=== PATIENT | female | born 1985 ===

== ENCOUNTER 2018-07-07 23:05 | Inpatient (IN) ==
--- NOTE | 2018-07-07 22:44 | OB/GYN History & Physical ---
Date of Encounter: 07/07/18 Time of Encounter: 22:42 Assessment and Plan (1) 38 weeks gestation of Current visit: Yes Status: Acute Patient presents at 38 weeks and 3 days gestation with rupture membranes and irregular contractions. Does have history of prior low transverse uterine section (documented in chart) for breech presentation. Patient has been well aware of risks associated with trial of labor after section including risk of uterine rupture requiring emergent section due to immediate risk of maternal and compromise and potential . Being aware of these risks that did not desire trial of labor after section. Will monitor closely for place intrauterine pressure catheter when possible. If any signs of compromise she develop patient has not aware that section would be required. (2) SROM (spontaneous rupture of membranes) Current visit: No Status: Resolved History of Present Illness Chief complaint: Ruptured membranes at 38 weeks 3 days HPI: Ms. Godfrey is a 33 year old female 2 para 1 female at 38 weeks 3 days gestation presents to labor and delivery with complaint of rupture membranes at 2030 this evening. This then followed by onset of irregular contractions. She denies bleeding she reports good movement. 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 This is otherwise uncomplicated. Past Med Surg Social Fam HX - Past Medical History Source: patient, old records reviewed Medical history: other Additional medical history: PCOS Psychiatric history: no psych history - Past Surgical History Surgical History: - Social History Smoking Status: Never smoker Smokeless Tobacco Status: No Alcohol use: none Drug use: none - Family History Mother Adopted: No Living Status: Still Living Hx Family Cardiac Disorders: No Hx Family Respiratory Disorders: No Hx Family Cancer: No Hx Family GI Disorders: No Hx Family Genitourinary Disorders: No Hx Family Endocrine Disorder: No Hx Family Musculoskeletal Disorders: No Hx Family Neuromuscular Disorders: No Hx Family Neurologic Disorders: No Hx Family HEENT Disorders: No Hx Family Autoimmune Disorders: No Hx Family Reproductive Disorders: No Hx Family Psychosocial Disorders: No Hx Family Medical Disorders: No Obstetrical History - Pregnancies : 2 - History/Complications History/Complications: Patient's a history of bicornuate uterus therefore is increased risk of breech infant which she did have a first child which required primary section Medications and Allergies Vitamins 1 tab PO DAILY 07/30/16 [History] Docusate [Colace] 100 mg PO BID #60 capsule 06/06/16 [Rx] Ibuprofen [Motrin] 600 mg PO Q6HR PRN #60 tablet 06/06/16 [Rx] OxyCODONE/APAP 5/325 [Percocet 5/325 MG] 1 each PO Q4HR PRN #30 tablet 06/06/16 [Rx] 3 Allergy/AdvReac Type Severity Reaction Status Date / Time No Known Allergies Allergy Verified 06/04/16 03:03 Exam - Constitutional Constitutional: well developed - HEENT HEENT: EOMI, PERRL - Neck Neck exam: full ROM - Lungs Respiratory exam: CTAB - Cardiovascular Cardiovascular exam: RRR - Abdomen Abdomen: Present: gravid - Extremities Extremities exam: full ROM Deep Tendon Reflex Grade: 2+ Normal - Cervix Dilation: 1 Effacement: 70 Station: -2 - Uterus Uterus exam: Present: enlarged Results All other labs normal.
[~2018-07-07 23:05] MED LIST: D5% in Lactated Ringers 1,000 ML IVC SCH; Famotidine 20 MG/2 ML VIAL IVP PRN; Lidocaine -MPF 1% 2 ML VIAL ONE; Metoclopramide 10 MG/2 ML VIAL IVP PRN; Naloxone 0.4 MG/ML INJ IVP PRN
[2018-07-07 23:07] LABS: Basophils % 0.2 %; Eosinophils # 0.1 K/mcL (0.0-0.6); Hemoglobin 12.5 g/dL (11.5-15.4); Immature Granulocytes % 0.6 % (0-4); Lymphocytes % 19.2 %; Mean Corpuscular HGB Conc 32.9 g/dL (31.6-35.5); Mean Corpuscular Volume 82.1 fL (83.0-100.0); Mean Platelet Volume 12.2 fL (9.4-12.4); Monocytes # 0.9 K/mcL (0.0-1.3); Monocytes % 8.6 %; Neutrophils # 7.4 K/mcL (1.6-8.9); Platelet Count 201 K/mcL (140-400); Red Blood Count 4.63 M/mcL (3.82-4.97); Red Cell Distribution Width 13.9 % (11.5-14.5); Segmented Neutrophils % 70.4 %
--- NOTE | 2018-07-07 23:29 | Anesthesia Evaluation PreOp ---
Date of Encounter: 07/07/18 Time of Encounter: 23:27 - Past History Planned Operation: PAMELA Cardiac History: Denies any Significant Hx Pulmonary History: Denies Any Significant HX DOUGHNUT FRYER History: Denies Any Significant HX Other Medical History: GERD Anesthesia History: No Prior Anesthetic Complications (Previous csection scheduled for breech presentation, spinal anesthesia.), Past Anesthesia : Yes Alcohol Use: none Drug use: none Medications and Allergies Vitamins 1 tab PO DAILY 06/04/16 [History] Docusate [Colace] 100 mg PO BID #60 capsule 06/06/16 [Rx] Ibuprofen [Motrin] 600 mg PO Q6HR PRN #60 tablet 06/06/16 [Rx] OxyCODONE/APAP 5/325 [Percocet 5/325 MG] 1 each PO Q4HR PRN #30 tablet 06/06/16 [Rx] 3 Allergy/AdvReac Type Severity Reaction Status Date / Time No Known Allergies Allergy Verified 06/04/16 03:03 - Meds/Allergy Pre-op Review Medications Reviewed: Yes Allergies Reviewed: Yes Beta Blockers on Current Med List: No Anesthesia Results - Labs 07/07/18 22:30 Anesthesia Exam BP 134/86 P 103 R 18 T 97.0 Height: 5'1" Weight: 86.6kg NPO (# of Hours): 2 Pain Scale: 5 Pain Scale Used: Numeric (1 - 10) - HEENT Pupil (Motor): Pupils equal Mallampati: III Teeth: Normal Oral Opening: Greater than 3 - DOUGHNUT FRYER LOC: Oriented DOUGHNUT FRYER Motor: Normal RUE, Normal LUE, Normal RLE, Normal LLE, Normal Face DOUGHNUT FRYER Sensory: Normal: RUE, LUE, RLE, LLE, Face - Cardiac Rhythm: Regular Murmur: None JVD: No Carotid Bruit: No - Pulmonary Breath Sounds: bilateral Clear Respiratory Effort: Symmetrical Anesthesia Assess/Plan ASA Score: 2 Modified [place] Scale for Level of Consciousness: Cooperative, oriented, and tranquil Anesthetic Plan: Regional Autologous Blood: Yes Monitoring Plan: Standard Monitors Recovery Plan: Other
[2018-07-07] MEDS ORDERED: Bupivacaine-MPF 0.25% 10 ML VIAL EP ONE (23:40)
[2018-07-07] MEDS ORDERED: *HR* Ropivacaine/PF 0.2% 20 ML VIAL EP ONE (23:40)
[2018-07-07] MEDS ORDERED: *HR* FentaNYL (PF) 100 MCG/2 ML VIAL EP ONE (23:40)
[2018-07-07] MEDS ORDERED: Ondansetron 4 MG/2 ML VIAL IVP PRN ×2 (23:40→23:43)
[2018-07-07] MEDS ORDERED: Naloxone 0.4 MG/ML INJ IVP PRN (23:40)
[2018-07-07] MEDS ORDERED: EPHEDrine 50 MG/ML VIAL IVP PRN (23:40)
[2018-07-07] MEDS ORDERED: Epidural Premix (fent/bupiv) 110 ML EP ONE (23:43)
[2018-07-07] MEDS ORDERED: Bupivacaine-MPF 0.25% 10 ML VIAL ONE (23:44)
[2018-07-07] MEDS ORDERED: *HR* FentaNYL (PF) 100 MCG/2 ML VIAL ONE (23:44)
[2018-07-07] MEDS ORDERED: Lidocaine -MPF 1% 5 ML AMPUL ONE (23:45)
[2018-07-07] MEDS ORDERED: Epidural Premix (fent/bupiv) 110 ML EP SCH (23:45)
[2018-07-07] MEDS ORDERED: Oxytocin 20 units/ LR 1000 mL 20 UNIT/1,000 ML BAG IVC SCH (23:45)
[2018-07-07] MEDS ORDERED: Ringers Solution, Lactated 1,000 ML IVC SCH (23:45)
[2018-07-07] MEDS ORDERED: Ringers Solution, Lactated 1,000 ML ONE (23:51)
--- NOTE | 2018-07-08 02:26 | Anesthesia Procedures ---
Date of Encounter: 07/08/18 Time of Encounter: 01:53 Procedures: Anesthesia - Epidural/Spinal Patient ID/Chart reviewed: Yes Patient examined: Yes OB Eval: Gestational age: 38.3 OB Eval: : 2 OB Eval: Hx Para: 1 OB Eval: Dilated at (cm): 3 OB Eval: Contractions: Non-stressed pattern Consent Obtained: Yes Supplemental Oxygen: None/Room Air Site Prep: Aseptic Technique, Sterile prep and drape, Povidone-Iodine 1% Patient position: upright Local Anesthetic: Lidocaine 1% Amount of Local Anesthetic used: 3 Touhy Needle Gauge: 18 Touhy Needle Depth (cm): 6 Catheter Depth at Skin (cm): 15 Test Dose (1.5% Lido + Epi): Volume given (mls): 3 Test Dose Result: Negative Loading Dose: 0.25% Marcaine (mls): 7 Loading Dose: Fentanyl (mcg): 100 Loading Dose Administered: Thru Catheter Infusion Med: 0.125% Bupivacaine w/ 2 mcg/ml Fentanyl Infusion Rate (mls/hr): [address]: Tegaderm, Tape Interspace Used: L3-L4 Loss of Resistance (KENNY): Yes Blood: No CSF: No Paresthesia: No Procedure: PAMELA placed 1st pass in upright position without any immediate noted complications. VSS and FHT stable throughout. Vitals + FHT's: 0153 BP 163/73 P 96 R 20 0220 BP 127/71 P 115 R 16 FHT 140s
--- NOTE | 2018-07-08 03:03 | OB Labor Progress Note ---
Date of Encounter: 07/08/18 Time of Encounter: 03:01 Labor Progress Note - Subjective Subjective: Pt comfortable with epidural - Cervix Cervix: 7/100/-1 - Heart Tones Heart Tones: RNST with variable decels - Burtrum Burtrum: IUPC placed, uc's q 2-4 min 40-60 mmhg - Plan Plan: Expect
--- NOTE | 2018-07-08 15:43 | OB/GYN Procedure Note ---
Delivery - Delivery Date: 07/08/18 Provider: Herbert Park Intrapartum events: none Delivery induction: none Delivery augmentation: pitocin Delivery monitor: external FHT, external uterine, internal FHT, internal uterine Anesthesia: local, epidural Quantitated Blood Loss: 200 - (s) Infant A Infant Delivery Date: 07/08/18 Delivery Time: 14:47 Presentation: vertex Position: OA Route of delivery: (with Vacuun Extraction) Gender: Female Viability: Viable Pounds: 6 Ounces: 8 Weight Gram: 3.12 kg at 1 minute: 8 at 5 mins: 9 Shoulder Dystocia: encountered Shoulder Dystocia Maneuvers: Melinda maneuver Specimens collected: cord blood - Repair Episiotomy: none Laceration Description: Perineal - 2nd Degree - Complications Delivery complications: none Delivery comments: Patient is a 33-year-old 2 para 1 at 38-4/7 weeks who presented to labor and delivery with complaint of spontaneous rupture membranes at 2030 on July 07 she was noted to be grossly ruptured on admission. Patient was a scheduled repeat section next week however the physician transmission design engineer had discussed the possibility of doing a trial of labor after section. Patient's first section was for breech presentation and she really wanted to try to deliver vaginally if possible. Risks of a problem of labor after section was extended to the patient and the potential risk to both mother and baby and she was willing to accept those risks. The patient did receive some Pitocin patient progressed appropriately and became complete however patient had no sensation of pushing we allowed the patient to labor down we then had the patient pushed for a few hours with minimal to no maternal effort. We did decrease patient's epidural to see that will give her the sensation. The patient pushed periodically again with minimal to no effort noted patient had been complete for over 7 hours baby had some decelerations became tachycardic we did work with the patient to have her try and push again we were having difficulty getting her to understand how to push and with a push decide this time we will try a vacuum to see if this would help. We did get consent for the application, and a Kiwi was applied to the head noted to be in the proper placement and with the next contraction we increased the pressure to 500 mmHg and with one pull lasting approximately 34 seconds we did deliver a viable female infant in occiput anterior presentation at 1447. We did encounter a shoulder dystocia Melinda maneuver was then used to get the anterior shoulder when she had the infant delivered Was placed on maternal abdomen. Apgars were 8 at 1 minute, nontender, weight was 6 lbs. 8 oz. 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 Patient had a second-degree perineal laceration with extension of the vaginal mucosa to the cervix. We did have to use a right angle retractor to visualize the apex then using a 3-0 Vicryl the incision was then closed in a running locking stitch. The remaining laceration was closed in the normal fashion. Good hemostasis is noted the uterus was explored old scar was intact minimal bleeding noted. All needles laps and sponge counts were correct 3, she will be observed for 2 hours before being taken floor. - Disposition Mom disposition: stable in LDR disposition: stable in LDR
[2018-07-08] MEDS ORDERED: Oxytocin 20 units/ LR 1000 mL 20 UNIT/1,000 ML BAG IVC SCH (17:20)
[2018-07-08] MEDS ORDERED: Measles/Mumps/Rubella Vacc 0.5 ML VIAL SQ PRN (17:20)
[2018-07-08] MEDS ORDERED: Acetaminophen 325 MG TABLET PO PRN (17:20)
[2018-07-08] MEDS: Ibuprofen 600 MG TABLET PO PRN (17:30)
[2018-07-08] MEDS: *HR* HYDROcodone/Acet 5/325 mg TABLET PO PRN (21:08)
[2018-07-09] MEDS: Ibuprofen 600 MG TABLET PO PRN ×2 (05:40→18:32)
[2018-07-09 05:49] LABS: Basophils % 0.2 %; Eosinophils # 0.1 K/mcL (0.0-0.6); Eosinophils % 0.5 %; Hematocrit 32.1 % (35.3-44.9); Immature Granulocytes % 0.5 % (0-4); Lymphocytes # 1.5 K/mcL (0.6-4.6); Lymphocytes % 8.8 %; Mean Corpuscular HGB Conc 32.7 g/dL (31.6-35.5); Mean Corpuscular Volume 82.5 fL (83.0-100.0); Mean Platelet Volume 11.7 fL (9.4-12.4); Monocytes # 1.1 K/mcL (0.0-1.3); Monocytes % 6.1 %; Neutrophils # 14.5 K/mcL (1.6-8.9); Platelet Count 170 K/mcL (140-400); Red Blood Count 3.89 M/mcL (3.82-4.97); Red Cell Distribution Width 14.4 % (11.5-14.5); Segmented Neutrophils % 83.9 %
[2018-07-09 05:51] LABS: Hemoglobin 10.5 g/dL (11.5-15.4)
[2018-07-09] MEDS: Prenatal Vit/FA 1 EACH TABLET PO SCH (09:17)
[2018-07-09] MEDS: *HR* HYDROcodone/Acet 5/325 mg TABLET PO PRN ×2 (09:18→17:33)
--- NOTE | 2018-07-09 10:32 | OB/GYN Progress Note ---
Date of Encounter: 07/09/18 Time of Encounter: 10:30 - Assessment and Plan (1) Breast feeding status of mother Current Visit: Yes Status: Acute consult (2) Vaginal delivery Current Visit: Yes Status: Acute Continue routine PP care Ice to perineum prn Dermoplast to perineum prn Anticipate d/c home tomorrow. (3) anemia Current Visit: Yes Status: Acute Continue iron supplementation Subjective - Subjective Principal diagnosis: Interval history: Feeling well. Out of bed without dizziness. Some perineal discomfort-using ice pack. Minimal cramping-using ibuprofen and Grace. Breast-feeding every 2- 3 hours. Some nipple soreness. Voiding without difficulty. Passing flatus, no BM yet. Tolerating regular diet. Patient reports: appetite normal, voiding normally, pain well controlled, ambulating normally : doing well, nursing well Objective - Latest Vital Signs Latest vital signs: Vital Signs Temp Pulse Resp BP Pulse Ox 07/09/18 08:18 97.8 F 106 14 108/73 98 07/09/18 05:23 98.3 F 102 16 114/71 98 07/08/18 21:07 97.7 F 109 16 106/68 98 07/08/18 19:47 98.3 F 106 16 106/69 98 07/08/18 18:00 98.4 F 98 16 122/81 99 Intake and Output 07/08/18 07/09/18 07/09/18 23:59 07:59 15:59 Intake Total 1550 / 1550 1600 / 1600 Output Total 1700 / 1700 Balance 1550 / 1550 -100 / -100 Intake: IV Fluids 750 / 750 Pitocin 20 unit In 1,000 ml @ 750 / 750 125 mls/hr IVC .Q8H JACKIE Rx#: [id number] Oral 800 / 800 1600 / 1600 Output: Urine 1700 / 1700 Other: # Voids 300 Weight 90 kg 86.319 kg Patient Weight 07/09/18 23:59 Weight 86.319 kg - Exam Lungs: bilateral: normal Chest: Normal S1, Normal S2 Extremities: Present: normal Abdomen: Present: normal appearance, soft Uterus: Present: normal, firm Uterus Position: 1 Finger Below Umbilicus, Midline - Labs Labs: Laboratory Results - last 24 hr 07/09/18 05:23 WBC 17.3 H D RBC 3.89 Hgb 10.5 L D Hct 32.1 L MCV 82.5 L MCH 27.0 L MCHC 32.7 RDW 14.4 Plt Count 170 MPV 11.7 Immature Gran % 0.5 Seg Neutrophils % 83.9 Lymphocytes % 8.8 Monocytes % 6.1 Eosinophils % 0.5 Basophils % 0.2 Neutrophils # 14.5 H Lymphocytes # 1.5 Monocytes # 1.1 Eosinophils # 0.1 Basophils # 0.0
[2018-07-10] MEDS: Ibuprofen 600 MG TABLET PO PRN (06:31)
[2018-07-10 08:18] VITALS: BP 109/56
[2018-07-10] MEDS: Prenatal Vit/FA 1 EACH TABLET PO SCH (08:46)
--- NOTE | 2018-07-10 10:35 | Discharge Summary ---
Date of Encounter: 07/10/18 Time of Encounter: 10:33 - Discharge Diagnosis (1) , delivered, current hospitalization Priority: Primary Status: Acute Comments: Stable PPD #2, tolerates diet, pain well managed, , desires discharge. (2) Breast feeding status of mother Priority: Secondary Status: Acute - Discharge Medications Prescriptions: Ibuprofen [Motrin] 600 mg PO Q6HR PRN #60 tablet PRN Reason: Cramping Docusate [Colace] 100 mg PO BID #30 capsule Home Medications: Vitamins 1 tab PO DAILY 06/04/16 [History] Acetaminophen [Tylenol] 650 mg PO Q6HR PRN tablet 07/10/18 [Rx] Docusate [Colace] 100 mg PO BID #30 capsule 07/10/18 [Rx] Ibuprofen [Motrin] 600 mg PO Q6HR PRN #60 tablet 07/10/18 [Rx] Vit/FA 1 each PO DAILY tablet 07/10/18 [Rx] Allergies/Adverse Reactions: 3 Allergy/AdvReac Type Severity Reaction Status Date / Time No Known Allergies Allergy Verified 07/07/18 23:55 Data Procedures and tests throughout hospitalization: Laboratory Tests 07/07/18 07/07/18 07/09/18 22:30 22:30 05:23 WBC 10.5 17.3 H D RBC 4.63 3.89 Hgb 12.5 10.5 L D Hct 38.0 32.1 L MCV 82.1 L 82.5 L MCH 27.0 L 27.0 L MCHC 32.9 32.7 RDW 13.9 14.4 Plt Count 201 170 MPV 12.2 11.7 Immature Gran % 0.6 0.5 Seg Neutrophils % 70.4 83.9 Lymphocytes % 19.2 8.8 Monocytes % 8.6 6.1 Eosinophils % 1.0 0.5 Basophils % 0.2 0.2 Neutrophils # 7.4 14.5 H Lymphocytes # 2.0 1.5 Monocytes # 0.9 1.1 Eosinophils # 0.1 0.1 Basophils # 0.0 0.0 Blood Type B POSITIVE Antibody Screen NEGATIVE Date of admission: 07/07/18 23:05 Consults: 07/08/18 17:20 Consult to Pediatric Lpn [CONS] Routine Comment: Vaginal delivery, consult needed Discharging clinician: Afshan Maxwell Anticipated date of discharge: 07/10/18 - Patient Status Disposition: Home, Self-Care Condition: Good Functional capacity at discharge: independent ambulation Overall status at discharge: patient is back to baseline - Discharge Instructions Follow Up With: Deja Hurd DO [Partnered Physician] - - Diet and Activity Activity: resume usual activities as tolerated Diet: regular diet Hospital Course Reason for admission: active labor Delivery: vacuum extraction () Episiotomy: none Laceration: 2nd degree Other procedures: none complications: none Discharge diagnosis: IUP at term delivered baby: male Hospital course: elivery - Delivery Date: 07/08/18 Provider: Herbert Park Intrapartum events: none Delivery induction: none Delivery augmentation: pitocin Delivery monitor: external FHT, external uterine, internal FHT, internal uterine Anesthesia: local, epidural Quantitated Blood Loss: 200 - Infant (s) Infant A Infant Delivery Date: 07/08/18 Delivery Time: 14:47 Presentation: vertex Position: OA Route of delivery: (with Vacuun Extraction) Gender: Female Viability: Viable Pounds: 6 Ounces: 8 Weight Gram: 3.12 kg at 1 minute: 8 at 5 mins: 9 Shoulder Dystocia: encountered Shoulder Dystocia Maneuvers: Melinda maneuver Specimens collected: cord blood - Repair Episiotomy: none Laceration Description: Perineal - 2nd Degree - Complications Delivery complications: none Delivery comments: Patient is a 33-year-old 2 para 1 at 38-4/7 weeks who presented to labor and delivery with complaint of spontaneous rupture membranes at 2030 on July 07 she was noted to be grossly ruptured on admission. Patient was a scheduled repeat section next week however the physician connie scratcher had discussed the possibility of doing a trial of labor after section. Patient's first section was for breech presentation and she really wanted to try to deliver vaginally if possible. Risks of a problem of labor after section was extended to the patient and the potential risk to both mother and baby and she was willing to accept those risks. The patient did receive some Pitocin patient progressed appropriately and became complete however patient had no sensation of pushing we allowed the patient to labor down we then had the patient pushed for a few hours with minimal to no maternal effort. We did decrease patient's epidural to see that will give her the sensation. The patient pushed periodically again with minimal to no effort noted patient had been complete for over 7 hours baby had some decelerations became tachycardic we did work with the patient to have her try and push again we were having difficulty getting her to understand how to push and with a push decide this time we will try a vacuum to see if this would help. We did get consent for the application, and a Kiwi was applied to the head noted to be in the proper placement and with the next contraction we increased the pressure to 500 mmHg and with one pull lasting approximately 34 seconds we did deliver a viable female in occiput anterior presentation at 1447. We did encounter a shoulder dystocia Melinda maneuver was then used to get the anterior shoulder when she had the delivered Was placed on maternal abdomen. Apgars were 8 at 1 minute, nontender, infant weight was 6 lbs. 8 oz. 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 Patient had a second-degree perineal laceration with extension of the vaginal mucosa to the cervix. We did have to use a right angle retractor to visualize the apex then using a 3-0 Vicryl the incision was then closed in a running locking stitch. The remaining laceration was closed in the normal fashion. Good hemostasis is noted the uterus was explored old scar was intact minimal bleeding noted. All needles laps and sponge counts were correct 3, she will be observed for 2 hours before being taken floor. - Disposition Mom disposition: stable in PP and appropriate for discharge Time Attestation: Total time spent providing and/or coordinating discharge services: Time Spent: Less than 30 minutes Exam - Constitutional Vitals: Temp Pulse Resp BP Pulse Ox 98.1 F 93 16 109/56 99 07/10/18 08:17 07/10/18 08:17 07/10/18 09:10 07/10/18 08:17 07/10/18 08:17 General appearance IM: A&O X 3 - Respiratory Respiratory exam: Present: CTAB - Cardiovascular Cardiovascular exam IM: Present: RRR - GI/Abdominal GI/Abdominal exam IM: soft - Uterine Tone: Firm Uterus Position: At Umbilicus - Extremities Exam Extremities exam IM: Present: normal capillary refill, normal inspection - Neurological Exam Neurological exam: normal gait, oriented X3 - Psychiatric Additional comments: Reports good mood
== END 2018-07-10 14:00 | disposition home or self-care (01) | DRG 560 ==
LOC: 1NENULAB → 1NENUOBS 07-08 17:45
PROVIDERS: ADMIT Obstetrics & Gynecology; ATTEND Obstetrics & Gynecology